=== PATIENT | male | born 1960 | race Caucasian/White ===

== ENCOUNTER 2017-01-03 10:14 | Emergency (ER) | payer BC ==
[~2017-01-03] VITALS: Ht 172.7 cm; Wt 90.0 kg
[2017-01-03 10:19] VITALS: BP 156/91; TEMP 98.2
[2017-01-03] MEDS ORDERED: LEVOXYL0.025 MG PO (10:23)
[2017-01-03] MEDS ORDERED: ZESTRIL30 MG PO (10:23)
[2017-01-03] MEDS ORDERED: VENTOLIN0.09 MG IH (10:23)
[2017-01-03] MEDS ORDERED: RT ADVAIR 128 DISKUS IH (10:24)
[2017-01-03] MEDS ORDERED: ZITHROMAX Z PA250 MG PO (11:12)
[2017-01-03] MEDS ORDERED: PREDNISONE20 MG PO (11:12)
[2017-01-03 11:28] VITALS: PULSE 103
== END 2017-01-03 11:30 | disposition home or self-care (01) ==
LOC: COL.ER 10:14
DX: J45.909 Unspecified asthma, uncomplicated (principal); I10 Essential (primary) hypertension
CPT/HCPCS: J7512